=== PATIENT | male | born 1945 | race Caucasian/White ===

== ENCOUNTER 2017-04-24 07:28 | Outpatient (CLI) ==
--- NOTE | 2017-04-24 09:24 | US ---
EXAM: Ultrasound abdomen limited. HISTORY: Elevated liver enzymes. COMPARISON: None available. TECHNIQUE: Abdominal, real time with image documentation: limited (eg, single organ, quadrant, foll ow-up) FINDINGS: The liver contains several thin-walled circumscribed anechoic masses with posterior enhanc ement, largest measuring 4 x 3.7 x 3.7 cm in the right lobe. Otherwise, the liver demonstrates incre ased parenchymal echogenicity without intrahepatic biliary dilatation. Portal venous flow is normal in direction. The gallbladder is without shadowing stones, wall thickening or pericholecystic fluid. Common duct measures approximately 0.5 cm. Visualized portions of the pancreas are unremarkable. IMPRESSION: 1. Fatty infiltration of the liver. 2. Hepatic cysts.
== END 2017-04-24 07:29 | disposition home or self-care (01) ==
LOC: RAD 07:28
PROVIDERS: ATTEND Family Medicine
DX: R74.8 Abnormal levels of other serum enzymes (principal)